=== PATIENT | male | born 1975 | race Caucasian/White ===

== ENCOUNTER 2019-04-14 20:06 | Inpatient (IN) | payer SELFPAY ==
[~2019-04-14] VITALS: Ht 185.4 cm; Wt 61.4 kg
[2019-04-14 20:29] LABS: BASO # 0.1 x10^3/uL (0.0-0.2); BASO % 1 % (0-3); EOS % 0 % (0-3); HEMATOCRIT 41.6 % (39.0-53.0); HEMOGLOBIN 14.7 g/dL (13.0-17.5); LYMPH # 2.1 x10^3/uL (1.0-4.8); LYMPH % 25 % (24-48); MEAN CORPUSCULAR HEMOGLOBIN 34 pg (25-35); MEAN CORPUSCULAR HGB CONC 35 g/dL (31-37); MEAN CORPUSCULAR VOLUME 96 fL (79-100); MONO # 0.7 x10^3/uL (0.0-1.1); MONO % 8 % (0-9); NEUT # 5.4 x10^3uL (1.8-7.7); NEUT % 66 % (31-73); PLATELET COUNT 218 x10^3/uL (140-400); RED BLOOD COUNT 4.33 x10^6/uL (4.30-5.70); RED CELL DISTRIBUTION WIDTH 12.5 % (11.5-14.5); WHITE BLOOD COUNT 8.3 x10^3/uL (4.0-11.0)
[2019-04-14] MEDS ORDERED: IV NORMAL SALINE 1000ML BAG 1,000 ML IV ONE (20:30)
[2019-04-14 20:45] LABS: ACETAMIN < 2 mcg/ml (10-30); ALBUMIN 4.7 g/dL (3.4-5.0); ALBUMIN/GLOBULIN RATIO 1.6 (1.0-1.7); CALCIUM 9.6 mg/dL (8.5-10.1); CREATININE 1.1 mg/dL (0.7-1.3); ETHANOL < 3 mg/dL (0-10); GFR 73.4; SALIC 5.6 mg/dL (2.8-20.0); TOTAL BILIRUBIN 0.7 mg/dL (0.2-1.0); TOTAL PROTEIN 7.7 g/dL (6.4-8.2)
[2019-04-14 20:47] LABS: POTASSIUM 2.8 mmol/L (3.5-5.1)
[2019-04-14] MEDS ORDERED: DIPHTH,PERTUSS(ACELL),TET TOX 0.5 ML DISP.SYRIN. VAX IM ONE (21:00)
--- NOTE | 2019-04-14 21:03 | PHYS DOC ---
Past Medical History Past Medical History: Anxiety, Depression Past Surgical History: Other Additional Past Surgical Histo: neck; bowel resection; hernia Smoking: Greater than 1 pack/day Alcohol Use: Occasionally Additional Information: none today Drug Use: None, Marijuana Adult General Chief Complaint Chief Complaint: SUICDAL IDEATION [facility] HPI Patient is a 43 year old male who presents with [intentional Wellbutrin overdose and wrist laceration in a suicide attempt.] Pt reports taking at least 20 of his Wellbutrin pills at 730 pm 04/14/2019, which he states are 100 mg each. He reports that he tried to cut his wrist after the ingestion to "hedge his bets," but had hand weakness and was unable to "cut it deep." He states past and active suicidal ideation starting around January when his grandfather . 1 month ago, his 10 year relationship with his significant other ended and he states that his depression has worsened ever since this time. Pt denies any past suicide attempts and denies any past psychiatric hospitalizations. He denies ingesting any caustic agents or other pills or foreign objects other than the Wellbutrin. He does not currently have a psychiatrist and does not take antidepressants. He denies seizure, headache, homicidal ideation, auditory/visual hallucinations, chest pain, shortness of breath, visual changes, palpitations, nausea/vomiting, diarrhea, or constipation. He admits to hand weakness and abdominal pain. Review of Systems Review of Systems Constitutional: Denies fever or chills Eyes: Denies change in visual acuity, redness, or eye pain HENT: Denies nasal congestion or sore throat Respiratory: Denies cough or shortness of breath Cardiovascular: No additional information not addressed in HPI GI: Denies nausea, vomiting, bloody stools or diarrhea. Admits abdominal pain : Denies dysuria or hematuria Musculoskeletal: Denies back pain or joint pain Integument: Denies rash or skin lesions Neurologic: Denies headache, focal weakness or sensory changes Endocrine: Denies polyuria or polydipsia Psychiatric: Admits suicidal ideation, depressed mood, anxiety. Denies homicidal ideation or auditory/visual hallucinations. All other systems were reviewed and found to be within normal limits, except as documented in this note. Current Medications Current Medications Current Medications Medications (Trade) Dose Ordered Sig/Jody Start Time Stop Time Status Last Admin Dose Admin Diphtheria/ Tetanus/Acell Pertussis (Boostrix) 0.5 ml ONCE ONCE 04/14/19 21:00 04/14/19 21:01 DC 04/14/19 21:15 0.5 ML Lorazepam (Ativan Inj) 2 mg 1X ONCE 04/14/19 21:30 04/14/19 21:31 DC 04/14/19 21:16 2 MG Potassium Chloride (KCl Oral Soln) 40 meq 1X ONCE 04/14/19 21:15 04/14/19 21:16 DC 04/14/19 21:15 40 MEQ Sodium Chloride 1,000 ml @ 100 mls/hr Q10H 04/14/19 21:30 04/15/19 21:29 04/14/19 21:36 100 MLS/HR Allergies Allergies Allergies Coded Allergies Type Severity Reaction Last Updated Verified meperidine Allergy Severe 04/14/19 Yes morphine Allergy Severe 04/14/19 Yes Physical Exam Physical Exam Constitutional: Well developed, well nourished, acute distress, non-toxic appearance. HENT: Normocephalic, atraumatic, bilateral external ears normal, oropharynx moist, no oral exudates, nose normal. Eyes: PERRLA, EOMI, conjunctiva normal, no discharge. Neck: Normal range of motion, no tenderness, supple, no stridor. Cardiovascular:Heart rate regular rhythm, no murmur Lungs & Thorax: Bilateral breath sounds clear to auscultation Abdomen: soft, no masses, no pulsatile masses. [Hyperactive bowel sounds in all 4 quadrants. TTP in epigastrium and R and L Upper quadrants with voluntary guarding.] Skin: Warm, dry, no erythema, no rash. Back: No tenderness, no CVA tenderness. Extremities: No tenderness, no cyanosis, no clubbing, ROM intact, no edema. Multiple 2-5 cm horizontal superficial lacerations on anterior aspect of left wrist. No active bleeding. Neurologic: Alert and oriented X 3, normal motor function, normal sensory function, no focal deficits noted. Psychologic: flat Affect, mood depressed. active suicidal ideation. Current Patient Data Vital Signs Vital Signs Date Time Temp Pulse Resp B/P (MAP) Pulse Ox O2 Delivery O2 Flow Rate FiO2 04/14/19 21:13 106 20 167/103 (124) 99 Room Air 04/14/19 20:06 98.5 98.5 Lab Values Laboratory Tests Test 04/14/19 20:20 7/8/19 21:00 White Blood Count 8.3 x10^3/uL (4.0-11.0) Red Blood Count 4.33 x10^6/uL (4.30-5.70) Hemoglobin 14.7 g/dL (13.0-17.5) Hematocrit 41.6 % (39.0-53.0) Mean Corpuscular Volume 96 fL (79-100) Mean Corpuscular Hemoglobin 34 pg (25-35) Mean Corpuscular Hemoglobin Concent 35 g/dL (31-37) Red Cell Distribution Width 12.5 % (11.5-14.5) Platelet Count 218 x10^3/uL (140-400) Neutrophils (%) (Auto) 66 % (31-73) Lymphocytes (%) (Auto) 25 % (24-48) Monocytes (%) (Auto) 8 % (0-9) Eosinophils (%) (Auto) 0 % (0-3) Basophils (%) (Auto) 1 % (0-3) Neutrophils # (Auto) 5.4 x10^3uL (1.8-7.7) Lymphocytes # (Auto) 2.1 x10^3/uL (1.0-4.8) Monocytes # (Auto) 0.7 x10^3/uL (0.0-1.1) Eosinophils # (Auto) 0.0 x10^3/uL (0.0-0.7) Basophils # (Auto) 0.1 x10^3/uL (0.0-0.2) Sodium Level 140 mmol/L (136-145) Potassium Level 2.8 mmol/L (3.5-5.1) *L Chloride Level 102 mmol/L (98-107) Carbon Dioxide Level 22 mmol/L (21-32) Anion Gap 16 (6-14) H Blood Urea Nitrogen 13 mg/dL (8-26) Creatinine 1.1 mg/dL (0.7-1.3) Estimated GFR (Cockcroft-Gault) 73.4 BUN/Creatinine Ratio 12 (6-20) Glucose Level 103 mg/dL (70-99) H Calcium Level 9.6 mg/dL (8.5-10.1) Magnesium Level 1.8 mg/dL (1.8-2.4) Total Bilirubin 0.7 mg/dL (0.2-1.0) Aspartate Amino Transferase (AST) 25 U/L (15-37) Alanine Aminotransferase (ALT) 26 U/L (16-63) Alkaline Phosphatase 63 U/L (46-116) Total Protein 7.7 g/dL (6.4-8.2) Albumin 4.7 g/dL (3.4-5.0) Albumin/Globulin Ratio 1.6 (1.0-1.7) Salicylates Level 5.6 mg/dL (2.8-20.0) Salicylate Last Dose Date Unk Salicylate Last Dose Time Unk Acetaminophen Level < 2 mcg/ml (10-30) L Acetaminophen Last Dose Date Unk Acetaminophen Last Dose Time Unk Ethyl Alcohol Level < 3 mg/dL (0-10) Urine Collection Type Unknown Urine Color Yellow Urine Clarity Clear Urine pH 7.5 Urine Specific [place] 1.020 Urine Protein Negative mg/dL (NEG-TRACE) Urine Glucose (UA) Negative mg/dL (NEG) Urine Ketones (Stick) 15 mg/dL (NEG) Urine Blood Negative (NEG) Urine Nitrite Negative (NEG) Urine Bilirubin Negative (NEG) Urine Urobilinogen Dipstick 0.2 mg/dL (0.2 mg/dL) Urine Leukocyte Esterase Negative (NEG) Urine RBC 0 /HPF (0-2) Urine WBC Occ /HPF (0-4) Urine Amorphous Sediment Present /HPF Urine Bacteria 0 /HPF (0-FEW) Urine Mucus Slight /LPF Urine Opiates Screen Neg (NEG) Urine Methadone Screen Neg (NEG) Urine Barbiturates Neg (NEG) Urine Phencyclidine Screen Neg (NEG) Urine Amphetamine/Methamphetamine Neg (NEG) Urine Benzodiazepines Screen Neg (NEG) Urine Cocaine Screen Neg (NEG) Urine Cannabinoids Screen Pos (NEG) Urine Ethyl Alcohol Neg (NEG) Laboratory Tests 04/14/19 20:20 Laboratory Tests 04/14/19 20:20 EKG EKG nsr rate 87 qtc 437 qrs 94, no stemi[] Radiology/Procedures Radiology/Procedures [] Course & Med Decision Making Course & Med Decision Making Pertinent Labs and Imaging studies reviewed. (See chart for details) [Pt is a 43 year old male presenting with suicidal ideation and attempt using Wellbutrin ingestion to overdose and to cut his wrist. He reports taking at least 20 pills at 730 pm today (04/14/2019) and states they are 100 mg each. There are multiple superficial lacerations on his left wrist that are not actively bleeding. Pt admits to abdominal pain and is TTP in the epigastrium, RUQ, and LUQ, with hyperactive bowel sounds x4. He denies headache, seizure, visual changes, chest pain, palpitations, shortness of breath, n/v, diarrhea, and constipation. He states he has active suicidal ideation and that this has been worsening ever since he was broken up with after a 10 year relationship. Poison control was called and informed of pt's medication ingestion, timing and dosag e. An EKG was ordered to assess for QRS prolongation, QTc prolongation, or other arrhythmias. CMP was ordered to rule out metabolic acidosis, and acetaminophen and salicylate level toxicology screening was ordered to rule out possible co- ingestion. A tetanus shot was ordered for patients lacerations and patient reports that it has been 16 years since his last tetanus shot. Pt is on 1 to 1 for active SI and psychiatry will be consulted. poison control: ekg q2h x three. monitor for seizures for 12 hours. give mag if qt>500 d/w riffel d/w kamla will see in am. pt endorsed some hallucination in er gave ativan but he rmained calm and cooperative Yakov Disclaimer aYkov Disclaimer This electronic medical record was generated, in whole or in part, using a voice recognition dictation system. Departure Departure Impression: Primary Impression: Overdose Disposition: ADMITTED INPATIENT Admitting Physician: PERRY Condition: STABLE Referrals: NO PCP (PCP) RICK YI MD Apr 14, 2019 21:03
[2019-04-14 21:09] LABS: BILIRUBIN,URINE NEGATIVE (NEG); CLARITY,URINE CLEAR; COLOR,URINE YELLOW
[2019-04-14 21:10] LABS: NITRITE,URINE NEGATIVE (NEG); PH,URINE 7.5; PROTEIN,URINE NEGATIVE (NEG-TRACE); UROBILINOGEN,URINE 0.2 mg/dL (0.2 mg/dL)
[2019-04-14] MEDS ORDERED: POTASSIUM CHLORIDE 20 MEQ/15 ML ORAL LIQUID. PO ONE (21:15)
[2019-04-14 21:20] LABS: AMORPHOUS SEDIMENT,UR PRESENT /HPF; BACTERIA,URINE 0 /HPF (0-FEW); RBC,URINE 0 /HPF (0-2); WBC,URINE OCC /HPF (0-4)
[2019-04-14 21:28] LABS: BARBITURATES NEG (NEG); BENZODIAZEPINES NEG (NEG); CANNABINOIDS POS (NEG); COCAINE NEG (NEG); METHADONE NEG (NEG); OPIATES NEG (NEG); PHENCYCLIDINE NEG (NEG)
[2019-04-14 21:30] LABS: AMPHETAMINE/METHAMPHETAMINE NEG (NEG)
[2019-04-14] MEDS: IV NORMAL SALINE 1000ML BAG 1,000 ML IV SCH (21:36)
[2019-04-14] MEDS ORDERED: MAGNESIUM SULFATE 1GM 100 ML IV ONE (23:00)
[2019-04-14] MEDS ORDERED: NICOTINE 21MG PATCH. TD ONE (23:00)
[2019-04-14 23:30] VITALS: BP 157/94
[2019-04-15] MEDS: IV NORMAL SALINE 1000ML BAG 1,000 ML IV SCH (00:46)
[2019-04-15 03:00] VITALS: BP 133/94
[2019-04-15 04:15] LABS: CALCIUM 8.6 mg/dL (8.5-10.1); CREATININE 0.8 mg/dL (0.7-1.3); POTASSIUM 3.3 mmol/L (3.5-5.1)
--- NOTE | 2019-04-15 06:14 | EKG ---
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
--- NOTE | 2019-04-15 06:16 | EKG ---
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
--- NOTE | 2019-04-15 06:17 | EKG ---
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
[2019-04-15 06:58] VITALS: BP 136/89
--- NOTE | 2019-04-15 10:37 | PDOC1 ---
History and Physical Date of Admission Date of Admission DATE: 04/15/19 TIME: 10:35 Identification/Chief Complaint Chief Complaint SEEN IN ER , 43 year old male who presents with [intentional Wellbutrin overdose and wrist laceration in a suicide attempt.] Pt reports taking at least 20 of his Wellbutrin pills at 730 pm 04/14/2019, which he states are 100 mg each. He reports that he tried to cut his wrist after the ingestion to "hedge his bets," but had hand weakness and was unable to "cut it deep." He states past and active suicidal ideation starting around January when his grandfather . 1 month ago, 10 year relationship with his significant other ended and he states that his depression has worsened since this time. denies any past suicide attempts and denies any past psychiatric hospitalizations. He denies ingesting any caustic agents or other pills or foreign objects other than the Wellbutrin. He does not currently have a psychiatrist and does not take antidepressants. He denies seizure, headache, homicidal ideation, auditory/visual hallucinations, chest pain, shortness of breath, visual changes, palpitations, nausea/vomiting, diarrhea, or constipation. He admits to hand weakness and abdominal pain.THAT HAVE RESOLVED HIS WEAKNESS AND ABDOMINAL PAIN HAVE RESOLVED Past Medical History Past Medical History Past Medical History Past Medical History Past Medical History: Anxiety, Depression Past Surgical History: Other Additional Past Surgical Histo: neck; bowel resection; hernia Smoking: Greater than 1 pack/day Alcohol Use: Occasionally Additional Information: none today Drug Use: None, Marijuana FAMILY HX ///DEPRESSION Family History Family History: Depression Social History Smoke: No ALCOHOL: occassional Drugs: Marijuana Current Medications Current Medications Current Medications Sodium Chloride 1,000 ml @ 1,000 mls/hr 1X ONCE IV Last administered on 04/14/19at 20:30; Start 04/14/19 at 20:30; Stop 04/14/19 at 21:29; Status DC Diphtheria/ Tetanus/Acell Pertussis (Boostrix) 0.5 ml ONCE ONCE VAX IM Last administered on 04/14/19at 21:15; Start 04/14/19 at 21:00; Stop 04/14/19 at 21:01; Status DC Potassium Chloride (KCl Oral Soln) 40 meq 1X ONCE PO Last administered on 04/14/19at 21:15; Start 04/14/19 at 21:15; Stop 04/14/19 at 21:16; Status DC Sodium Chloride 1,000 ml @ 100 mls/hr Q10H IV Last administered on 04/15/19at 00:46; Start 04/14/19 at 21:30; Stop 04/15/19 at 21:29 Lorazepam (Ativan Inj) 2 mg 1X ONCE IV Last administered on 04/14/19at 21:16; Start 04/14/19 at 21:30; Stop 04/14/19 at 21:31; Status DC Lorazepam (Ativan Inj) 2 mg PRN Q2HRS PRN IV agitation; Start 04/14/19 at 22:30 Nicotine (Nicoderm Cq 21mg) 1 patch 1X ONCE TD Last administered on 04/14/19at 23:00; Start 04/14/19 at 23:00; Stop 04/14/19 at 23:01; Status DC Magnesium Sulfate/ Dextrose 100 ml @ 100 mls/hr 1X ONCE IV Last administered on 04/14/19at 23:00; Start 04/14/19 at 23:00; Stop 04/14/19 at 23:59; Status DC Allergies Allergies: Coded Allergies: meperidine (Verified Allergy, Severe, 04/14/19) morphine (Verified Allergy, Severe, 04/14/19) ROS Review of System Review of Systems Review of Systems Constitutional: Denies fever or chills Eyes: Denies change in visual acuity, redness, or eye pain HENT: Denies nasal congestion or sore throat Respiratory: Denies cough or shortness of breath Cardiovascular: No additional information not addressed in HPI GI: Denies nausea, vomiting, bloody stools or diarrhea. Admits abdominal pain : Denies dysuria or hematuria Musculoskeletal: Denies back pain or joint pain SUPERFICIAL CUTS TO WRISTS Integument: Denies rash or skin lesions Neurologic: Denies headache, focal weakness or sensory changes Endocrine: Denies polyuria or polydipsia Psychiatric: Admits suicidal ideation, depressed mood, anxiety. Denies homicidal ideation or auditory/visual hallucinations. 14 PT systems were reviewed and found to be within normal limits, except as documented Physical Exam Physical Exam Physical Exam Physical Exam Constitutional: Well developed, well nourished, acute distress, non-toxic appearance. HENT: Normocephalic, atraumatic, bilateral external ears normal, oropharynx moist, no oral exudates, nose normal. Eyes: PERRLA, EOMI, conjunctiva normal, no discharge. Neck: Normal range of motion, no tenderness, supple, no stridor. Cardiovascular:Heart rate regular rhythm, no murmur Lungs & Thorax: Bilateral breath sounds clear to auscultation Abdomen: soft, no masses, no pulsatile masses. Skin: Warm, dry, no erythema, no rash. Back: No tenderness, no CVA tenderness. Extremities: No tenderness, no cyanosis, no clubbing, ROM intact, no edema. Multiple 2-5 cm horizontal superficial lacerations on anterior aspect of left wrist. No active bleeding. Neurologic: Alert and oriented X 3, normal motor function, normal sensory function, no focal deficits noted. Psychologic: flat Affect, mood depressed. active suicidal ideation. General: Alert, Oriented X3, Cooperative, No acute distress HEENT: Atraumatic, EOMI, Mucous membr. moist/pink Lungs: Clear to auscultation, Normal air movement Heart: S1S2, RRR, no thrills Breasts: Not examined Abdomen: Normal bowel sounds, Soft Rectal Exam: not examined PELVIC: Examination not indicated Extremities: No cyanosis, No edema Skin: No rashes, No breakdown Neuro: Normal gait, Normal speech, Strength at 5/5 X4 ext, Normal tone, Sensation intact, Cranial nerves 3-12 NL Psych/Mental Status: Mental status NL, Mood NL Vitals Vitals Vital Signs Date Time Temp Pulse Resp B/P (MAP) Pulse Ox O2 Delivery O2 Flow Rate FiO2 04/15/19 08:00 Room Air 04/15/19 06:58 97.9 80 18 136/89 (105) 98 97.9 Labs Labs Laboratory Tests Test 04/14/19 20:20 04/14/19 21:00 04/15/19 03:40 White Blood Count 8.3 x10^3/uL (4.0-11.0) Red Blood Count 4.33 x10^6/uL (4.30-5.70) Hemoglobin 14.7 g/dL (13.0-17.5) Hematocrit 41.6 % (39.0-53.0) Mean Corpuscular Volume 96 fL (79-100) Mean Corpuscular Hemoglobin 34 pg (25-35) Mean Corpuscular Hemoglobin Concent 35 g/dL (31-37) Red Cell Distribution Width 12.5 % (11.5-14.5) Platelet Count 218 x10^3/uL (140-400) Neutrophils (%) (Auto) 66 % (31-73) Lymphocytes (%) (Auto) 25 % (24-48) Monocytes (%) (Auto) 8 % (0-9) Eosinophils (%) (Auto) 0 % (0-3) Basophils (%) (Auto) 1 % (0-3) Neutrophils # (Auto) 5.4 x10^3uL (1.8-7.7) Lymphocytes # (Auto) 2.1 x10^3/uL (1.0-4.8) Monocytes # (Auto) 0.7 x10^3/uL (0.0-1.1) Eosinophils # (Auto) 0.0 x10^3/uL (0.0-0.7) Basophils # (Auto) 0.1 x10^3/uL (0.0-0.2) Sodium Level 140 mmol/L (136-145) 141 mmol/L (136-145) Potassium Level 2.8 mmol/L (3.5-5.1) 3.3 mmol/L (3.5-5.1) Chloride Level 102 mmol/L (98-107) 106 mmol/L (98-107) Carbon Dioxide Level 22 mmol/L (21-32) 25 mmol/L (21-32) Anion Gap 16 (6-14) 10 (6-14) Blood Urea Nitrogen 13 mg/dL (8-26) 9 mg/dL (8-26) Creatinine 1.1 mg/dL (0.7-1.3) 0.8 mg/dL (0.7-1.3) Estimated GFR (Cockcroft-Gault) 73.4 106.0 BUN/Creatinine Ratio 12 (6-20) Glucose Level 103 mg/dL (70-99) 89 mg/dL (70-99) Calcium Level 9.6 mg/dL (8.5-10.1) 8.6 mg/dL (8.5-10.1) Magnesium Level 1.8 mg/dL (1.8-2.4) Total Bilirubin 0.7 mg/dL (0.2-1.0) Aspartate Amino Transf (AST/SGOT) 25 U/L (15-37) Alanine Aminotransferase (ALT/SGPT) 26 U/L (16-63) Alkaline Phosphatase 63 U/L (46-116) Total Protein 7.7 g/dL (6.4-8.2) Albumin 4.7 g/dL (3.4-5.0) Albumin/Globulin Ratio 1.6 (1.0-1.7) Salicylates Level 5.6 mg/dL (2.8-20.0) Salicylate Last Dose Date Unk Salicylate Last Dose Time Unk Acetaminophen Level < 2 mcg/ml (10-30) Acetaminophen Last Dose Date Unk Acetaminophen Last Dose Time Unk Ethyl Alcohol Level < 3 mg/dL (0-10) Urine Collection Type Unknown Urine Color Yellow Urine Clarity Clear Urine pH 7.5 Urine Specific [place] 1.020 Urine Protein Negative mg/dL (NEG-TRACE) Urine Glucose (UA) Negative mg/dL (NEG) Urine Ketones (Stick) 15 mg/dL (NEG) Urine Blood Negative (NEG) Urine Nitrite Negative (NEG) Urine Bilirubin Negative (NEG) Urine Urobilinogen Dipstick 0.2 mg/dL (0.2 mg/dL) Urine Leukocyte Esterase Negative (NEG) Urine RBC 0 /HPF (0-2) Urine WBC Occ /HPF (0-4) Urine Amorphous Sediment Present /HPF Urine Bacteria 0 /HPF (0-FEW) Urine Mucus Slight /LPF Urine Opiates Screen Neg (NEG) Urine Methadone Screen Neg (NEG) Urine Barbiturates Neg (NEG) Urine Phencyclidine Screen Neg (NEG) Urine Amphetamine/Methamphetamine Neg (NEG) Urine Benzodiazepines Screen Neg (NEG) Urine Cocaine Screen Neg (NEG) Urine Cannabinoids Screen Pos (NEG) Urine Ethyl Alcohol Neg (NEG) Laboratory Tests Test 04/14/19 20:20 04/14/19 21:00 04/15/19 03:40 White Blood Count 8.3 x10^3/uL (4.0-11.0) Red Blood Count 4.33 x10^6/uL (4.30-5.70) Hemoglobin 14.7 g/dL (13.0-17.5) Hematocrit 41.6 % (39.0-53.0) Mean Corpuscular Volume 96 fL (79-100) Mean Corpuscular Hemoglobin 34 pg (25-35) Mean Corpuscular Hemoglobin Concent 35 g/dL (31-37) Red Cell Distribution Width 12.5 % (11.5-14.5) Platelet Count 218 x10^3/uL (140-400) Neutrophils (%) (Auto) 66 % (31-73) Lymphocytes (%) (Auto) 25 % (24-48) Monocytes (%) (Auto) 8 % (0-9) Eosinophils (%) (Auto) 0 % (0-3) Basophils (%) (Auto) 1 % (0-3) Neutrophils # (Auto) 5.4 x10^3uL (1.8-7.7) Lymphocytes # (Auto) 2.1 x10^3/uL (1.0-4.8) Monocytes # (Auto) 0.7 x10^3/uL (0.0-1.1) Eosinophils # (Auto) 0.0 x10^3/uL (0.0-0.7) Basophils # (Auto) 0.1 x10^3/uL (0.0-0.2) Sodium Level 140 mmol/L (136-145) 141 mmol/L (136-145) Potassium Level 2.8 mmol/L (3.5-5.1) 3.3 mmol/L (3.5-5.1) Chloride Level 102 mmol/L (98-107) 106 mmol/L (98-107) Carbon Dioxide Level 22 mmol/L (21-32) 25 mmol/L (21-32) Anion Gap 16 (6-14) 10 (6-14) Blood Urea Nitrogen 13 mg/dL (8-26) 9 mg/dL (8-26) Creatinine 1.1 mg/dL (0.7-1.3) 0.8 mg/dL (0.7-1.3) Estimated GFR (Cockcroft-Gault) 73.4 106.0 BUN/Creatinine Ratio 12 (6-20) Glucose Level 103 mg/dL (70-99) 89 mg/dL (70-99) Calcium Level 9.6 mg/dL (8.5-10.1) 8.6 mg/dL (8.5-10.1) Magnesium Level 1.8 mg/dL (1.8-2.4) Total Bilirubin 0.7 mg/dL (0.2-1.0) Aspartate Amino Transf (AST/SGOT) 25 U/L (15-37) Alanine Aminotransferase (ALT/SGPT) 26 U/L (16-63) Alkaline Phosphatase 63 U/L (46-116) Total Protein 7.7 g/dL (6.4-8.2) Albumin 4.7 g/dL (3.4-5.0) Albumin/Globulin Ratio 1.6 (1.0-1.7) Salicylates Level 5.6 mg/dL (2.8-20.0) Salicylate Last Dose Date Unk Salicylate Last Dose Time Unk Acetaminophen Level < 2 mcg/ml (10-30) Acetaminophen Last Dose Date Unk Acetaminophen Last Dose Time Unk Ethyl Alcohol Level < 3 mg/dL (0-10) Urine Collection Type Unknown Urine Color Yellow Urine Clarity Clear Urine pH 7.5 Urine Specific [place] 1.020 Urine Protein Negative mg/dL (NEG-TRACE) Urine Glucose (UA) Negative mg/dL (NEG) Urine Ketones (Stick) 15 mg/dL (NEG) Urine Blood Negative (NEG) Urine Nitrite Negative (NEG) Urine Bilirubin Negative (NEG) Urine Urobilinogen Dipstick 0.2 mg/dL (0.2 mg/dL) Urine Leukocyte Esterase Negative (NEG) Urine RBC 0 /HPF (0-2) Urine WBC Occ /HPF (0-4) Urine Amorphous Sediment Present /HPF Urine Bacteria 0 /HPF (0-FEW) Urine Mucus Slight /LPF Urine Opiates Screen Neg (NEG) Urine Methadone Screen Neg (NEG) Urine Barbiturates Neg (NEG) Urine Phencyclidine Screen Neg (NEG) Urine Amphetamine/Methamphetamine Neg (NEG) Urine Benzodiazepines Screen Neg (NEG) Urine Cocaine Screen Neg (NEG) Urine Cannabinoids Screen Pos (NEG) Urine Ethyl Alcohol Neg (NEG) VTE Prophylaxis Ordered VTE Prophylaxis Devices: Yes VTE Pharmacological Prophylaxi: Yes Assessment/Plan Assessment/Plan IMPRESSION 1. Major depression WITH SUICIDE ATTEMPT 2. attempted overdose OF WELLBUTRIN 3. THC ABUSE 4. HYPOKALEMIA, REPLACED PLAN CVC BED TRANSFER TO [facility] TODAY REPLACE K WOUND DRESSING LEFT WRIST 57 MIN PT EXAM, CHART REVIEW D/C PLANNING > 50% OF TIME SPENT WITH EXAM, CHART REVIEW, PT CARE CARE COORDINATION MARTINA JEFFERS MD Apr 15, 2019 10:37
[2019-04-15 11:15] VITALS: BP 139/92
--- NOTE | 2019-04-15 11:55 | NUR ---
SS following for discharge planning. SS reviewed pt chart. Pt was admitted for overdose. SS contacted PAT team and made referral for assessment and evaluation. Jakob from PAT team came to assess pt and requested that evaluation and clinical be phoned and faxed to [facility], ; fax [phone]. SS phoned and faxed referral to [facility]. SS awaiting acceptance decision and will proceed accordingly. Pt's RN notified.
--- NOTE | 2019-04-15 13:33 | NUR ---
SS following up with discharge planning. Pt accepted at [facility], [address] [address]. Pt will discharge today and go to [facility] at 1500 via [facility] ambulance. Pt and pt's RN notified.
[2019-04-15] MEDS ORDERED: POTASSIUM CHLORIDE 20 MEQ TABLET.ER. PO ONE (14:00)
--- NOTE | 2019-04-15 14:19 | PDOC3 ---
Discharge Summary Date of Admission: Apr 14, 2019 Date of Discharge: Apr 15, 2019 Follow-Up: 1-2 days Admitting Diagnosis comment: VTE Prophylaxis Ordered VTE Prophylaxis Devices: Yes VTE Pharmacological Prophylaxi: Yes Assessment/Plan Assessment/Plan IMPRESSION 1. Major depression WITH SUICIDE ATTEMPT 2. attempted overdose OF WELLBUTRIN 3. THC ABUSE 4. HYPOKALEMIA, REPLACED PLAN CVC BED TRANSFER TO [facility] TODAY REPLACE K WOUND DRESSING LEFT WRIST Identification/Chief Complaint Chief Complaint SEEN IN ER , 43 year old male who presents with [intentional Wellbutrin overdose and wrist laceration in a suicide attempt.] Pt reports taking at least 20 of his Wellbutrin pills at 730 pm 04/14/2019, which he states are 100 mg each. He reports that he tried to cut his wrist after the ingestion to "hedge his bets," but had hand weakness and was unable to "cut it deep." He states past and active suicidal ideation starting around January when his grandfather . 1 month ago, 10 year relationship with his significant other ended and he states that his depression has worsened since this time. denies any past suicide attempts and denies any past psychiatric hospitalizations. He denies ingesting any caustic agents or other pills or foreign objects other than the Wellbutrin. He does not currently have a psychiatrist and does not take antidepressants. He denies seizure, headache, homicidal ideation, auditory/visual hallucinations, chest pain, shortness of breath, visual changes, palpitations, nausea/vomiting, diarrhea, or constipation. He admits to hand weakness and abdominal pain.THAT HAVE RESOLVED HIS WEAKNESS AND ABDOMINAL PAIN HAVE RESOLVED Past Medical History Past Medical History Past Medical History Past Medical History Past Medical History: Anxiety, Depression Past Surgical History: Other Additional Past Surgical Histo: neck; bowel resection; hernia Smoking: Greater than 1 pack/day Alcohol Use: Occasionally Additional Information: none today Drug Use: None, Marijuana FAMILY HX ///DEPRESSION Family History Family History: Depression Social History Smoke: No ALCOHOL: occassional Drugs: Marijuana Current Medications Current Medications Current Medications Sodium Chloride 1,000 ml @ 1,000 mls/hr 1X ONCE IV Last administered on 04/14/19at 20:30; Start 04/14/19 at 20:30; Stop 04/14/19 at 21:29; Status DC Diphtheria/ Tetanus/Acell Pertussis (Boostrix) 0.5 ml ONCE ONCE VAX IM Last administered on 04/14/19 21:15; Start 04/14/19 at 21:00; Stop 04/14/19 at 21:01; Status DC Potassium Chloride (KCl Oral Soln) 40 meq 1X ONCE PO Last administered on 04/14/19 21:15; Start 04/14/19 at 21:15; Stop 04/14/19 at 21:16; Status DC Sodium Chloride 1,000 ml @ 100 mls/hr Q10H IV Last administered on 04/15/19at 00:46; Start 04/14/19 at 21:30; Stop 04/15/19 at 21:29 Lorazepam (Ativan Inj) 2 mg 1X ONCE IV Last administered on 04/14/19at 21:16; Start 04/14/19 at 21:30; Stop 04/14/19 at 21:31; Status DC Lorazepam (Ativan Inj) 2 mg PRN Q2HRS PRN IV agitation; Start 04/14/19 at 22:30 Nicotine (Nicoderm Cq 21mg) 1 patch 1X ONCE TD Last administered on 04/14/19at 23:00; Start 04/14/19 at 23:00; Stop 04/14/19 at 23:01; Status DC Magnesium Sulfate/ Dextrose 100 ml @ 100 mls/hr 1X ONCE IV Last administered on 04/14/19at 23:00; Start 04/14/19 at 23:00; Stop 04/14/19 at 23:59; Status DC Allergies Allergies: Coded Allergies: meperidine (Verified Allergy, Severe, 04/14/19) morphine (Verified Allergy, Severe, 04/14/19) ROS Review of System Review of Systems Review of Systems Constitutional: Denies fever or chills Eyes: Denies change in visual acuity, redness, or eye pain HENT: Denies nasal congestion or sore throat Respiratory: Denies cough or shortness of breath Cardiovascular: No additional information not addressed in HPI GI: Denies nausea, vomiting, bloody stools or diarrhea. Admits abdominal pain : Denies dysuria or hematuria Musculoskeletal: Denies back pain or joint pain SUPERFICIAL CUTS TO WRISTS Integument: Denies rash or skin lesions Neurologic: Denies headache, focal weakness or sensory changes Endocrine: Denies polyuria or polydipsia Psychiatric: Admits suicidal ideation, depressed mood, anxiety. Denies homicidal ideation or auditory/visual hallucinations. 14 PT systems were reviewed and found to be within normal limits, except as documented Physical Exam Physical Exam Physical Exam Physical Exam Constitutional: Well developed, well nourished, acute distress, non-toxic appearance. HENT: Normocephalic, atraumatic, bilateral external ears normal, oropharynx moist, no oral exudates, nose normal. Eyes: PERRLA, EOMI, conjunctiva normal, no discharge. Neck: Normal range of motion, no tenderness, supple, no stridor. Cardiovascular:Heart rate regular rhythm, no murmur Lungs & Thorax: Bilateral breath sounds clear to auscultation Abdomen: soft, no masses, no pulsatile masses. Skin: Warm, dry, no erythema, no rash. Back: No tenderness, no CVA tenderness. Extremities: No tenderness, no cyanosis, no clubbing, ROM intact, no edema. Multiple 2-5 cm horizontal superficial lacerations on anterior aspect of left wrist. No active bleeding. Neurologic: Alert and oriented X 3, normal motor function, normal sensory function, no focal deficits noted. Psychologic: flat Affect, mood depressed. active suicidal ideation. General: Alert, Oriented X3, Cooperative, No acute distress HEENT: Atraumatic, EOMI, Mucous membr. moist/pink Lungs: Clear to auscultation, Normal air movement Heart: S1S2, RRR, no thrills Breasts: Not examined Abdomen: Normal bowel sounds, Soft Rectal Exam: not examined PELVIC: Examination not indicated Extremities: No cyanosis, No edema Skin: No rashes, No breakdown Neuro: Normal gait, Normal speech, Strength at 5/5 X4 ext, Normal tone, Sensation intact, Cranial nerves 3-12 NL Psych/Mental Status: Mental status NL, Mood NL 57 MIN PT EXAM, CHART REVIEW D/C PLANNING > 50% OF TIME SPENT WITH EXAM, CHART REVIEW, PT CARE CARE COORDINATION Brief Hospital Course Mr. Patel is a 43 old [sex] who presented with [ OVERDOSE, SUICIDE ATTEMPT/ IDEATION] CONDITION AT DISCHARGE: Improved Discharge Medications Current Medications Sodium Chloride 1,000 ml @ 1,000 mls/hr 1X ONCE IV Last administered on 04/14/19at 20:30; Start 04/14/19 at 20:30; Stop 04/14/19 at 21:29; Status DC Diphtheria/ Tetanus/Acell Pertussis (Boostrix) 0.5 ml ONCE ONCE VAX IM Last administered on 04/14/19 21:15; Start 04/14/19 at 21:00; Stop 04/14/19 at 21:01; Status DC Potassium Chloride (KCl Oral Soln) 40 meq 1X ONCE PO Last administered on 04/14/19 21:15; Start 04/14/19 at 21:15; Stop 04/14/19 at 21:16; Status DC Sodium Chloride 1,000 ml @ 100 mls/hr Q10H IV Last administered on 04/15/19 00:46; Start 04/14/19 at 21:30; Stop 04/15/19 at 21:29 Lorazepam (Ativan Inj) 2 mg 1X ONCE IV Last administered on 04/14/19at 21:16; Start 04/14/19 at 21:30; Stop 04/14/19 at 21:31; Status DC Lorazepam (Ativan Inj) 2 mg PRN Q2HRS PRN IV agitation Last administered on 04/15/19at 10:39; Start 04/14/19 at 22:30 Nicotine (Nicoderm Cq 21mg) 1 patch 1X ONCE TD Last administered on 04/14/19 23:00; Start 04/14/19 at 23:00; Stop 04/14/19 at 23:01; Status DC Magnesium Sulfate/ Dextrose 100 ml @ 100 mls/hr 1X ONCE IV Last administered on 04/14/19 23:00; Start 04/14/19 at 23:00; Stop 04/14/19 at 23:59; Status DC Potassium Chloride (Klor-Con) 40 meq 1X ONCE PO ; Start 04/15/19 at 14:00; Stop 04/15/19 at 14:01; Status DC Vital Signs Vital Signs Date Time Temp Pulse Resp B/P (MAP) Pulse Ox O2 Delivery O2 Flow Rate FiO2 04/15/19 11:15 97.9 76 18 139/92 (108) 98 Room Air 97.9 Labs Laboratory Tests Test 04/14/19 20:20 04/14/19 21:00 04/15/19 03:40 White Blood Count 8.3 x10^3/uL (4.0-11.0) Red Blood Count 4.33 x10^6/uL (4.30-5.70) Hemoglobin 14.7 g/dL (13.0-17.5) Hematocrit 41.6 % (39.0-53.0) Mean Corpuscular Volume 96 fL (79-100) Mean Corpuscular Hemoglobin 34 pg (25-35) Mean Corpuscular Hemoglobin Concent 35 g/dL (31-37) Red Cell Distribution Width 12.5 % (11.5-14.5) Platelet Count 218 x10^3/uL (140-400) Neutrophils (%) (Auto) 66 % (31-73) Lymphocytes (%) (Auto) 25 % (24-48) Monocytes (%) (Auto) 8 % (0-9) Eosinophils (%) (Auto) 0 % (0-3) Basophils (%) (Auto) 1 % (0-3) Neutrophils # (Auto) 5.4 x10^3uL (1.8-7.7) Lymphocytes # (Auto) 2.1 x10^3/uL (1.0-4.8) Monocytes # (Auto) 0.7 x10^3/uL (0.0-1.1) Eosinophils # (Auto) 0.0 x10^3/uL (0.0-0.7) Basophils # (Auto) 0.1 x10^3/uL (0.0-0.2) Sodium Level 140 mmol/L (136-145) 141 mmol/L (136-145) Potassium Level 2.8 mmol/L (3.5-5.1) 3.3 mmol/L (3.5-5.1) Chloride Level 102 mmol/L (98-107) 106 mmol/L (98-107) Carbon Dioxide Level 22 mmol/L (21-32) 25 mmol/L (21-32) Anion Gap 16 (6-14) 10 (6-14) Blood Urea Nitrogen 13 mg/dL (8-26) 9 mg/dL (8-26) Creatinine 1.1 mg/dL (0.7-1.3) 0.8 mg/dL (0.7-1.3) Estimated GFR (Cockcroft-Gault) 73.4 106.0 BUN/Creatinine Ratio 12 (6-20) Glucose Level 103 mg/dL (70-99) 89 mg/dL (70-99) Calcium Level 9.6 mg/dL (8.5-10.1) 8.6 mg/dL (8.5-10.1) Magnesium Level 1.8 mg/dL (1.8-2.4) Total Bilirubin 0.7 mg/dL (0.2-1.0) Aspartate Amino Transf (AST/SGOT) 25 U/L (15-37) Alanine Aminotransferase (ALT/SGPT) 26 U/L (16-63) Alkaline Phosphatase 63 U/L (46-116) Total Protein 7.7 g/dL (6.4-8.2) Albumin 4.7 g/dL (3.4-5.0) Albumin/Globulin Ratio 1.6 (1.0-1.7) Salicylates Level 5.6 mg/dL (2.8-20.0) Salicylate Last Dose Date Unk Salicylate Last Dose Time Unk Acetaminophen Level < 2 mcg/ml (10-30) Acetaminophen Last Dose Date Unk Acetaminophen Last Dose Time Unk Ethyl Alcohol Level < 3 mg/dL (0-10) Urine Collection Type Unknown Urine Color Yellow Urine Clarity Clear Urine pH 7.5 Urine Specific [place] 1.020 Urine Protein Negative mg/dL (NEG-TRACE) Urine Glucose (UA) Negative mg/dL (NEG) Urine Ketones (Stick) 15 mg/dL (NEG) Urine Blood Negative (NEG) Urine Nitrite Negative (NEG) Urine Bilirubin Negative (NEG) Urine Urobilinogen Dipstick 0.2 mg/dL (0.2 mg/dL) Urine Leukocyte Esterase Negative (NEG) Urine RBC 0 /HPF (0-2) Urine WBC Occ /HPF (0-4) Urine Amorphous Sediment Present /HPF Urine Bacteria 0 /HPF (0-FEW) Urine Mucus Slight /LPF Urine Opiates Screen Neg (NEG) Urine Methadone Screen Neg (NEG) Urine Barbiturates Neg (NEG) Urine Phencyclidine Screen Neg (NEG) Urine Amphetamine/Methamphetamine Neg (NEG) Urine Benzodiazepines Screen Neg (NEG) Urine Cocaine Screen Neg (NEG) Urine Cannabinoids Screen Pos (NEG) Urine Ethyl Alcohol Neg (NEG) Laboratory Tests Test 04/14/19 20:20 04/14/19 21:00 04/15/19 03:40 White Blood Count 8.3 x10^3/uL (4.0-11.0) Red Blood Count 4.33 x10^6/uL (4.30-5.70) Hemoglobin 14.7 g/dL (13.0-17.5) Hematocrit 41.6 % (39.0-53.0) Mean Corpuscular Volume 96 fL (79-100) Mean Corpuscular Hemoglobin 34 pg (25-35) Mean Corpuscular Hemoglobin Concent 35 g/dL (31-37) Red Cell Distribution Width 12.5 % (11.5-14.5) Platelet Count 218 x10^3/uL (140-400) Neutrophils (%) (Auto) 66 % (31-73) Lymphocytes (%) (Auto) 25 % (24-48) Monocytes (%) (Auto) 8 % (0-9) Eosinophils (%) (Auto) 0 % (0-3) Basophils (%) (Auto) 1 % (0-3) Neutrophils # (Auto) 5.4 x10^3uL (1.8-7.7) Lymphocytes # (Auto) 2.1 x10^3/uL (1.0-4.8) Monocytes # (Auto) 0.7 x10^3/uL (0.0-1.1) Eosinophils # (Auto) 0.0 x10^3/uL (0.0-0.7) Basophils # (Auto) 0.1 x10^3/uL (0.0-0.2) Sodium Level 140 mmol/L (136-145) 141 mmol/L (136-145) Potassium Level 2.8 mmol/L (3.5-5.1) 3.3 mmol/L (3.5-5.1) Chloride Level 102 mmol/L (98-107) 106 mmol/L (98-107) Carbon Dioxide Level 22 mmol/L (21-32) 25 mmol/L (21-32) Anion Gap 16 (6-14) 10 (6-14) Blood Urea Nitrogen 13 mg/dL (8-26) 9 mg/dL (8-26) Creatinine 1.1 mg/dL (0.7-1.3) 0.8 mg/dL (0.7-1.3) Estimated GFR (Cockcroft-Gault) 73.4 106.0 BUN/Creatinine Ratio 12 (6-20) Glucose Level 103 mg/dL (70-99) 89 mg/dL (70-99) Calcium Level 9.6 mg/dL (8.5-10.1) 8.6 mg/dL (8.5-10.1) Magnesium Level 1.8 mg/dL (1.8-2.4) Total Bilirubin 0.7 mg/dL (0.2-1.0) Aspartate Amino Transf (AST/SGOT) 25 U/L (15-37) Alanine Aminotransferase (ALT/SGPT) 26 U/L (16-63) Alkaline Phosphatase 63 U/L (46-116) Total Protein 7.7 g/dL (6.4-8.2) Albumin 4.7 g/dL (3.4-5.0) Albumin/Globulin Ratio 1.6 (1.0-1.7) Salicylates Level 5.6 mg/dL (2.8-20.0) Salicylate Last Dose Date Unk Salicylate Last Dose Time Unk Acetaminophen Level < 2 mcg/ml (10-30) Acetaminophen Last Dose Date Unk Acetaminophen Last Dose Time Unk Ethyl Alcohol Level < 3 mg/dL (0-10) Urine Collection Type Unknown Urine Color Yellow Urine Clarity Clear Urine pH 7.5 Urine Specific [place] 1.020 Urine Protein Negative mg/dL (NEG-TRACE) Urine Glucose (UA) Negative mg/dL (NEG) Urine Ketones (Stick) 15 mg/dL (NEG) Urine Blood Negative (NEG) Urine Nitrite Negative (NEG) Urine Bilirubin Negative (NEG) Urine Urobilinogen Dipstick 0.2 mg/dL (0.2 mg/dL) Urine Leukocyte Esterase Negative (NEG) Urine RBC 0 /HPF (0-2) Urine WBC Occ /HPF (0-4) Urine Amorphous Sediment Present /HPF Urine Bacteria 0 /HPF (0-FEW) Urine Mucus Slight /LPF Urine Opiates Screen Neg (NEG) Urine Methadone Screen Neg (NEG) Urine Barbiturates Neg (NEG) Urine Phencyclidine Screen Neg (NEG) Urine Amphetamine/Methamphetamine Neg (NEG) Urine Benzodiazepines Screen Neg (NEG) Urine Cocaine Screen Neg (NEG) Urine Cannabinoids Screen Pos (NEG) Urine Ethyl Alcohol Neg (NEG) Allergies Allergies Coded Allergies Type Severity Reaction Last Updated Verified meperidine Allergy Severe 04/14/19 Yes morphine Allergy Severe 04/14/19 Yes Disposition/Orders: D/C to Another Facility (TO [facility] BY AMBULANCE TODAY), Other Patient Instructions 57 MIN D/C PLANNING AND EXAM MARTINA JEFFERS MD Apr 15, 2019 14:19
--- NOTE | 2019-04-15 14:21 | SNU/HH DC ---
DISCHARGE ORDERS DISCHARGE INFORMATION: CONDITION ON DISCHARGE: Guarded CODE STATUS: Code Status: Full ALF: SNF STAY <30 DAYS: No HOSPICE: HOSPICE: No HOSPICE EVAL & TREAT: No POST DISCHARGE ORDERS: ACTIVITY ORDERS: Activity as tolerated DIET AFTER DISCHARGE: Regular WOUND/INCISION CARE: Change dressing (TRANSFER TO [facility] TODAY) CHECKS AFTER DISCHARGE: CHECKS AFTER DISCHARGE: Check blood press - daily MARTINA JEFFERS MD Apr 15, 2019 14:21
--- NOTE | 2019-04-15 15:22 | NUR ---
Discharge Note: ARELIS CUELLO S [address] [place] [address] Discharge instructions and discharge home medications reviewed with Patient and a copy given. All questions have been answered and understanding verbalized. The following instructions and handouts were given: Discontinued iv Patient discharged to [facility] with ambulance personnel via wheelchair
== END 2019-04-15 15:28 | DRG 918 ==
LOC: ER 20:06 → EEVIPCON 20:06 → 2 SOUTH 20:30
PROVIDERS: ADMIT Internal Medicine; ATTEND Internal Medicine
DX: T43.292A Poisoning by other antidepressants, intentional self-harm, initial encounter (principal); R45.851 Suicidal ideations; E87.6 Hypokalemia; F12.10 Cannabis abuse, uncomplicated; F41.9 Anxiety disorder, unspecified; S61.519A Laceration without foreign body of unspecified wrist, initial encounter; F32.9 Major depressive disorder, single episode, unspecified; Z81.8 Family history of other mental and behavioral disorders; Z87.891 Personal history of nicotine dependence; X58.XXXA Exposure to other specified factors, initial encounter; Y93.89 Activity, other specified; Y92.89 Other specified places as the place of occurrence of the external cause; Y99.8 Other external cause status; Z88.5 Allergy status to narcotic agent; Z88.8 Allergy status to other drugs, medicaments and biological substances
CPT/HCPCS: 36415; 80048; 80053; 80307; 80329; 81001; 83735; 85025; 90471; 90715; 93005; 96361; 96365; 96375; G0480; J2060; J3475; J7030; 99285-25